=== PATIENT | female | born 1945 | race Caucasian/White ===

== ENCOUNTER 2017-03-05 09:59 | Outpatient (CLI) ==
--- NOTE | 2017-03-05 12:17 | MAMMO ---
EXAM: Digital screening mammogram with tomosynthesis HISTORY: Screening COMPARISON: 10/26/2015 FINDINGS: Digital MLO and CC views of the right and left breast were performed. Computer aided detec tion was utilized. Tomosynthesis was performed. The breast tissue is heterogeneously dense, which co uld obscure small masses. There is an asymmetry in the right central breast CC view 3 cm from the ni pple. There is an asymmetry in the left superior breast MLO view 2.5 cm from the nipple. IMPRESSION: Bilateral asymmetries. Diagnostic mammogram and possible ultrasound recommended for further evaluati on. BIRADS category 0, incomplete
== END 2017-03-05 10:00 | disposition home or self-care (01) ==
LOC: RAD 09:59
PROVIDERS: ATTEND Nurse Practitioner
DX: Z12.31 Encounter for screening mammogram for malignant neoplasm of breast (principal)
CPT/HCPCS: 77067

== ENCOUNTER 2017-09-08 08:32 | Day surgery (SDC) ==
[2017-09-08] MEDS ORDERED: LIDOCAINE 1% 20 ML MDV ID STA (09:21)
[2017-09-08] MEDS ORDERED: LIDOCAINE HCL 2% LUER-JET ONE (10:30)
[2017-09-08] MEDS ORDERED: DIPRIVAN 20 ML VIAL IVP ONE (10:30)
[2017-09-08] MEDS ORDERED: VERSED ONE (10:30)
[2017-09-08 11:54] VITALS: BP 112/56; TEMP 98.7
--- NOTE | 2017-09-09 10:35 | OP ---
PROCEDURE: EGD (ESOPHAGOGASTRODUODENOSCOPY) WITH BIOPSY. ENDOSCOPIST: Bharathi LOWRY M.D. INDICATION: MID UPPER GASTRIC PAIN INSTRUMENT: [id number]. MEDICATION: PER ANESTHESIA. PROCEDURE: The patient was positioned for endoscopy. The oropharynx was sprayed with Cetacaine spray and the endoscope was advanced through the bite block into the esophagus and from there advanced to the duodenum. The duodenum was normal. The pylorus was patent. The antrum is normal. Biopsy for Helicobacter was obtained. Retroflex exam reveals a normal cardia. The Z- line was regular at 40cm. The esophagus was otherwise normal. She tolerated the procedure without immediate complication. PLAN: 1. Her symptoms have improved with medication change continue these medications and we will back as needed. CC: Dr. Mane. BEAR
== END 2017-09-08 11:45 | disposition home or self-care (01) ==
LOC: SURG 08:32
PROVIDERS: ATTEND Internal Medicine Gastroenterology
DX: R10.13 Epigastric pain (principal); B96.81 Helicobacter pylori [H. pylori] as the cause of diseases classified elsewhere
CPT/HCPCS: 87339

== ENCOUNTER 2018-09-09 19:49 | Emergency (ER) | payer OTHER ==
[2018-09-09 19:56] VITALS: BP 151/72; TEMP 98.6; BMI 25.6
--- NOTE | 2018-09-09 20:06 | ED.PDOC ---
General ED Provider: Dr. INO ANDERSON Chief Complaint: Chest Pain Stated Complaint: started this afternooe while working at the [employer],Patient puts a full open hand towards her epigastric chest area in the central line reporting mayelin cabrales that also tradioated to the lower back,It ois easing now she adds. Time Seen by Physician: 19:55 Mode of Arrival: Wheelchair Information Source: Patient Exam Limitations: No limitations Primary Care Provider: NICKOLAS GARCIA Nursing and Triage Documentation Reviewed and Agree: Yes Does patient meet sepsis criteria?: No System Inflammatory Response Syndrome: Not Applicable Sepsis Protocol: For patient's 13 years and over: Temp is 96.8 and below OR 101 and greater Pulse >90 BPM Resp >20/minute Acutely Altered Mental Status Are patient's symptoms suggestive of a new infection, such as: -Pneumonia -Skin, Soft Tissue -Endocarditis -UTI -Bone, Joint Infection -Implantable Device -Acute Abdominal Infection -Wound Infection -Meningitis -Blood Stream Catheter Infection -Unknown Cardiovascular Complaint Exam - Chest Pain Complaint/Exam Duration: started this afternoon Symptoms Are: Still present Timing: Intermittent Length of Chest Pain Episodes: patient states "it is easing off Initial Severity: Moderate Current Severity: Mild Review of Systems - Review Of Systems Constitutional: Reports: Weakness Eyes: Reports: No symptoms Ears, Nose, Mouth, Throat: Reports: No symptoms Respiratory: Reports: No symptoms Cardiac: Reports: Chest pain, Other GI: Reports: No symptoms : Reports: No symptoms Musculoskeletal: Reports: Back pain Skin: Reports: No symptoms Neurological: Reports: No symptoms Endocrine: Reports: No symptoms Hematologic/Lymphatic: Reports: No symptoms All Other Systems: Reviewed and Negative Past Medical History - Past Medical History Previously Healthy: Yes Endocrine: Reports: None Cardiovascular: Reports: Other Respiratory: Reports: None Hematological: Reports: None Gastrointestinal: Reports: Gallstones, Other Genitourinary: Reports: None Neuro/Psych: Reports: None Musculoskeletal: Reports: None Cancer: Reports: None Last Menstrual Period: na - Surgical History General Surgical History: Reports: None - Family History Family History: Reports: None - Social History Smoking Status: Never smoker Hx Substance Use: No Alcohol Screening: None - Immunizations Tetanus Shot up to Date: No (unknown) Physical Exam - Physical Exam Appearance: Well-appearing Ill-appearing: None Pain Distress: None Eyes: BASILIO ENT: Ears normal Neck: Supple Respiratory: Airway patent Cardiovascular: RRR GI/: Soft Musculoskeletal: Normal strength Skin: Warm Neurological: Sensation intact Psychiatric: Affect appropriate Re-Evaluation - Re-Evaluation Time of Re-Evaluation: 21:46 Status: Improved Vital Signs Stable: Yes Pain Level: none Appearance: NAD Lungs: Clear Skin: Warm and Dry Neuro: Alert and Oriented X3 CV: Other (EKG ) Additional Comments: EKG showing an old LBBB,negative Trop. Critical Care Note - Critical Care Note Total Time (mins): 0 Course - Course Hematology/Chemistry: 09/09/18 20:16 09/09/18 20:16 Orders, Labs, Meds: Lab Review 09/09/18 09/09/18 20:16 20:16 WBC 8.94 RBC 4.61 Hgb 13.7 Hct 40.0 MCV 86.8 MCH 29.7 MCHC 34.3 RDW Coeff of Devi 12.0 Plt Count 291 Immature Gran % (Auto) 0.1 Neut % (Auto) 52.5 Lymph % (Auto) 36.6 [place] % (Auto) 8.1 Eos % (Auto) 2.0 Baso % (Auto) 0.7 Immature Gran # (Auto) 0.0 Neut # (Auto) 4.7 Lymph # (Auto) 3.3 [place] # (Auto) 0.7 Eos # (Auto) 0.2 Baso # (Auto) 0.1 Sodium 136.8 Potassium 3.67 Chloride 97.2 L Carbon Dioxide 27.7 Anion Gap 15.57 BUN 20.4 H Creatinine 1.12 Estimated GFR (MDRD) 48.00 BUN/Creatinine Ratio 18.21 Glucose 98.4 Calcium 9.93 Total Bilirubin 0.65 AST 34.2 ALT 26.0 Alkaline Phosphatase 62.0 Total Creatine Kinase 155.8 H CK-MB (CK-2) 1.940 CK-MB (CK-2) % 1.2400 Troponin I < 0.012 Total Protein 8.03 Albumin 5.20 H Globulin 2.83 Albumin/Globulin Ratio 1.83 Orders Category Date Time Status EKG-(ED ONLY) Stat CARDIO 09/09/18 20:11 Completed NPO REMINDER: IMAGING ONCE CARE 09/09/18 20:15 Active IV [ED IV/MEDIPORT/POWERPORT] .ONCE EMERGENCY 09/09/18 20:19 Active CBC W/ AUTO DIFF Stat LAB 09/09/18 20:16 Completed COMPREHENSIVE METABOLIC PANEL Stat LAB 09/09/18 20:16 Completed CREATINE KINASE Stat LAB 09/09/18 20:16 Completed TROPONIN I Stat LAB 09/09/18 20:16 Completed 0.9 % Sodium Chloride [Saline Flush] MEDS 09/09/18 20:19 Ordered 1 syr IVF PRN PRN CT CHEST PE PROTOCOL Stat RADS 09/09/18 20:14 Completed Medications Generic Name Dose Route Start Last Admin Trade Name Freq PRN Reason Stop Dose Admin Sodium Chloride 1 syr 09/09/18 20:19 Saline Flush IVF PRN PRN To flush IV Vital Signs: Temp Pulse Resp BP Pulse Ox 09/09/18 19:50 98.6 F 75 20 151/72 H 97 DEYA Risk Score DEYA Risk Score: Risk Score Odds of by 30D 0 0.1 (0.1-0.2) 1 0.3 (0.2-0.3) 2 0.4 (0.3-0.5) 3 0.7 (0.6-0.9) 4 1.2 (1.0-1.5) 5 2.2 (1.9-2.6) 6 3.0 (2.5-3.6) 7 4.8 (3.8-6.1) Departure - Departure Time of Disposition: 21:50 Disposition: HOME SELF-CARE Discharge Problem: Dehydration after exertion Instructions: Hiatal Hernia (ED) Condition: Good Pt referred to PMD for follow-up: Yes IPMP verified?: No Additional Instructions: Carafate tab a 1 mg bid,consider reflux prophylaxix with PVCP.,meal schedule and activity. Allergies/Adverse Reactions: Allergies acetaminophen [From Lortab] Adverse Reaction (Verified 09/09/18 20:16) cephalexin [From Keflex] Adverse Reaction (Verified 09/09/18 20:16) clarithromycin [From Biaxin] Adverse Reaction (Verified 09/09/18 20:16) hydrocodone [From Lortab] Adverse Reaction (Verified 09/09/18 20:16) Penicillins Adverse Reaction (Verified 09/09/18 20:16) Sulfa (Sulfonamide Antibiotics) Adverse Reaction (Verified 09/09/18 20:16) Home Medications: Ambulatory Orders Atorvastatin Calcium 10 mg PO DAILY 12/14/15 Citalopram Hydrobromide [Citalopram HBr] 20 mg PO DAILY 12/14/15 Furosemide 20 mg PO DAILY 12/14/15 Levothyroxine Sodium [Synthroid] 100 mcg PO QDAC 12/14/15 Metoprolol Tartrate [Lopressor] 25 mg PO DAILY 12/14/15 Potassium Chloride [K-Tab ER] 10 meq PO DAILY 12/14/15 Aspirin [Aspirin EC] 81 mg PO DAILY 09/04/17 Losartan Potassium [Cozaar] 25 mg PO DAILY 09/04/17 Omeprazole 20 mg PO DAILY 09/04/17 Disposition Discussed With: Patient, Family
--- NOTE | 2018-09-09 21:33 | CT ---
EXAM: CTA of the chest. History: Mid chest pain and back pain. Comparison: Chest radiograph 05/07/2013 Technique: Multiplanar CT images through the thorax were obtained following administration of IV con trast. MIP images and 3-D reconstructions were also acquired. Findings: Heart is mildly enlarged. 3.8 cm ectatic ascending aorta. The thoracic aorta is not well opacified with contrast material. No axillary lymphadenopathy. No pathologically enlarged mediasti nal or hilar lymph nodes. Bilateral ground-glass changes with mosaic attenuation. No consolidated p neumonia. No pleural fluid and no pneumothorax. No suspicious lung masses or lung nodules. There i s subsegmental atelectasis seen within the left lower lobe. Within the visualized upper abdomen, status post cholecystectomy. There is mild circumferential wall thickening of the distal esophagus and tiny hiatal hernia. No acute osseous abnormalities. No pulmonary arterial filling defects. Impression: 1. No pulmonary embolism and no evidence for pneumonia. 2. Mosaic attenuation lung pattern most compatible with air trapping. 3. Mild cardiomegaly. 4. Ectatic ascending aorta. 5. Mild circumferential wall thickening of the distal esophagus and tiny hiatal hernia. Correlate f or possible reflux esophagitis
== END 2018-09-09 21:58 | disposition home or self-care (01) ==
LOC: ED 19:49
DX: E86.0 Dehydration (principal); R07.9 Chest pain, unspecified; M54.9 Dorsalgia, unspecified; R53.1 Weakness; Z79.899 Other long term (current) drug therapy
CPT/HCPCS: 36415; 80053; 82550; 82553; 84484; 85025; 93005; 93010; 99283